=== PATIENT | female | born 1970 | race Caucasian/White ===

== ENCOUNTER → 2023-10-01 09:17 | Outpatient (REF) | payer BC, SELFPAY | LOC: RAD 09:17 | PROVIDERS: ATTENDING PHYSICIAN Physician Assistant | DX: Z87.81 Personal history of (healed) traumatic fracture (principal); Z13.820 Encounter for screening for osteoporosis | CPT/HCPCS: 77080 ==

== ENCOUNTER → 2023-10-02 07:22 | Outpatient (REF) | payer BC, SELFPAY | LOC: RAD 07:22 | PROVIDERS: ATTENDING PHYSICIAN Physician Assistant | DX: R10.11 Right upper quadrant pain (principal) | CPT/HCPCS: 76700 ==

== ENCOUNTER → 2023-10-15 17:11 | Outpatient (REF) | payer BC, SELFPAY | LOC: WDC 17:11 | PROVIDERS: ATTENDING PHYSICIAN Physician Assistant | DX: Z12.31 Encounter for screening mammogram for malignant neoplasm of breast (principal) | CPT/HCPCS: 77063; 77067 ==

== ENCOUNTER 2024-03-13 17:56 | Emergency (ER) | payer BC, SELFPAY ==
[2024-03-13] VITALS (9 sets, daily range): BP systolic 94–133; BP diastolic 67–90; PULSE 64–69; BMI 37.7
[2024-03-13 18:25] LABS: % Basophils 1.1 % (0-2); % Eosinophils 3.7 % (0-6); % Immature Granulocytes 0.2 % (0-0.5); % Lymphocytes 34.4 % (20.5-51.1); % Monocytes 7.6 % (1.7-9.3); Absolute Basophils 0.1 10^3/uL (0-0.2); Absolute Eosinophils 0.2 10^3/uL (0-0.7); Absolute Lymphocytes 1.9 10^3/uL (1.2-3.4); Absolute Monocytes 0.4 10^3/uL (0.1-0.6); Absolute Neutrophils 2.9 10^3/uL (1.4-6.5); Hematocrit 35.2 % (37.0-47.0); Hemoglobin 11.6 g/dL (12.0-16.0); Mean Corpuscular Hgb 30.6 pg (27.0-31.0); Mean Corpuscular Volume 92.9 fL (81.0-99.0); Mean Platelet Volume 8.7 fL (7.4-10.4); Nucleated Red Blood Cells % 0 %; Platelet Count 332 10^3/uL (130-400); Red Blood Cell Count 3.79 10^6/uL (4.20-5.40); Red Cell Dist. Width 12.9 % (11.5-14.5); White Blood Cell Count 5.4 10^3/uL (4.8-10.8)
[2024-03-13 18:41] LABS: ALT (SGPT) 19 U/L (0-35); AST (SGOT) 27 U/L (14-36); Albumin 4.4 g/dl (3.5-5.0); Alkaline Phosphatase 66 U/L (38-126); Blood Urea Nitrogen 15 mg/dl (7-17); Calcium 9.2 mg/dl (8.4-10.2); Carbon Dioxide 25 mmol/L (22-30); Chloride 103 mmol/L (98-107); Glucose 153 mg/dl (70-99); Potassium 4.1 mmol/L (3.5-5.1); Sodium 135 mmol/L (135-145); Total Bilirubin 1.4 mg/dl (0.2-1.3); Total Protein 6.9 g/dl (6.3-8.2); eGFR > 60.00
[2024-03-13] MEDS: NSS 1000 IV (20:57)
--- NOTE | 2024-03-13 21:00 | ED.GENMED ---
History of Present Illness
General
Chief Complaint: Fainting/Passed Out
Source: patient
Exam Limitations: none
Time Seen by Provider: 03/13/24 20:23
Nursing documentation reviewed up to this point in time: agreed with
History of Present Illness
History of Present Illness:
54-year-old female limited past medical history presents with a syncopal event while at the [employer] with her dog who is getting his or her nails clipped as she felt hot dizzy then passed out vomiting, no head strike no chest pain or shortness
of breath has had similar in the past told with orthostasis, had a cardiac workup and cleared, no fevers, no abdominal pain no diarrhea no hematuria no bloody stools no vaginal bleeding, feeling better now states she woke up this morning felt a bit
off, but was able to go about her day take her dog to the broach grinder,
Past History
Past History
ED Past Medical History: Hypercholesterolemia, Psychiatric and Other (Dysthymia, migraines)
ED Past Surgical History:
Social History
Tobacco: Non-smoker
Alcohol: None
Drug: None
Personal:
Living: with family
Employment: Employed
Review of Systems
Review of Systems
All Other Systems: Not applicable
Constitutional: Reports fatigue
EENT: Reports no symptoms
Respiratory: Reports no symptoms
Cardiac: Reports syncope
ABD/GI: Reports nausea and vomiting; Denies abdominal pain or diarrhea
: Reports no symptoms
Musculoskeletal: Reports no symptoms
Skin: Reports no symptoms
Neurological: Reports dizzy
Endocrine: Reports no symptoms
Hematologic/Lymphatic: Reports no symptoms
Phy Exam
Physical Exam
Physical Exam:
Physical Exam
General: no apparent distress, not acutely ill
Neck: No tongue bite no posterior neck
Heart: s1/s2 regular rate and rhythm, no murmur. equal radial pulses.
Lungs: no acute respiratory distress. clear bilaterally
Abdomen: Nontender
Neuro: alert and oriented. no focal neurological deficits
Skin: no rash
Psychiatric: well kept. interactive and cooperative
Extremities: no edema.
Course
Orders/Labs/Results
Orders:
Orders
03/13/24 18:00
EKG [Electrocardiogram (*1)] Urgent
Reason for Study: Syncope
EKG- Treatment ONCE
03/13/24 18:17
Complete Blood Count/With Diff Urgent
Comprehensive Metabolic Panel Urgent
03/13/24 20:55
0.9% Sodium Chloride 1000 ml [Nss] 1,000 ml IV BOLUS
03/13/24 20:56
Orthostatic VS- Treatment ONCE
Abnormal Lab Results
03/13/24
18:17
RBC 3.79 L 10^6/uL
(4.20-5.40)
Hgb 11.6 L g/dL
(12.0-16.0)
Hct 35.2 L %
(37.0-47.0)
Glucose 153 H mg/dl
(70-99)
Total Bilirubin 1.4 H mg/dl
(0.2-1.3)
03/13/24 18:17
03/13/24 18:17
Vital Signs
Initial and Last Documented VS:
Initial Vital Signs
Temp Pulse Resp BP Pulse Ox
98.3 F 73 15 94/67 97
03/13/24 18:01 03/13/24 18:01 03/13/24 18:01 03/13/24 18:01 03/13/24 18:01
Last Documented Vital Signs
Temp Pulse Resp BP Pulse Ox
98.3 F 68 16 122/78 97
03/13/24 18:01 03/13/24 18:06 03/13/24 18:06 03/13/24 20:37 01/02/25 20:39
MDM/Problems Addressed
Differential Diagnosis Includes:
Vasovagal dehydration electrolyte abnormality arrhythmia
MDM/Problems Addressed:
Syncope
Chronic conditions affecting care:
Syncope vasovagal
Acute Exacerbation and/or Progression of Chronic Illness:
Syncope vasovagal
*Pulse Oximetry
Patient hypoxic: no
*EKG
Interpreted by ED Provider?: Yes
Interpretation: normal
Comparison EKG: no comparison EKG present
Heart Rate: 78
Rate: normal
Rhythm: sinus
Ischemia: no ischemia
*Swing Tender Interpretation
Rate: normal
Interpretation: normal
Heart Rate: 78
Rhythm: sinus
*Critical Care Note
Total Time (30-74mins, 75-104mins- exclusive of procedures): Not Applicable
Update Note
Update Note:
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
Update patient feeling better
ED Attending Note
-
Portions of this chart may have been created with voice recognition software.� Occasional wrong word or��sound alike� substitutions may have occurred due to the inherent limitations of voice recognition software.
Discharge Plan
Departure
Patient Disposition: Home (Routine Discharge)
Date of Disposition: 03/13/24
Time of Disposition: 22:19
Patient with high blood pressure during this ER visit?: No
Condition: Good
Covid-19: Not Applicable
Discharge Problem:
Syncope and collapse
Instructions: Syncope (Fainting) (DC)
Prescriptions:
No Action
doxycycline hyclate 100 MG capsule
100 mg PO DAILY
sumatriptan succinate 50 MG tablet
50 - 100 mg PO PRN PRN (Reason: migraines)
bupropion HCl [Wellbutrin] 100 MG tablet
100 mg PO DAILY
Patient Comments:
pt seems unsure of dose
alprazolam 0.5 MG tablet
0.25 mg PO Q6HPRN PRN (Reason: anxiety)
fluoxetine 20 MG capsule
60 mg PO DAILY
hydrocodone-acetaminophen [Vicodin] 1 EACH tablet
1 ea PO Q6HPRN PRN (Reason: headache) Qty: 5 0RF
Referrals:
Kelsey Erickson PA-C [Family Provider] - Next open appointment
Activity Restrictions/Additional Instructions:
Rest, plenty fluids, when you stand to stand up slowly,
Return to the ER for worsening symptoms or any other concerns
Interventions
Interventions:
*Risk Screen - Suicide Last Done: 03/13/24 18:01
*General Assessment Last Done: 03/13/24 20:39
*Neglect/Abuse Screening Last Done: 03/13/24 18:01
ED- Fall Risk Assessment Last Done: 03/13/24 20:39
*ED COVID-19 Vaccine History Last Done: 03/13/24 20:39
ED- Cardiac Assessment Last Done: 03/13/24 20:39
ED- Neurological Assessment Last Done: 03/13/24 20:39
Discharge Date and Time
Print Language: SERBIAN
== END 2024-03-13 22:53 | disposition home or self-care (01) ==
LOC: EMR 17:56
PROVIDERS: Emergency Medicine; EMERGENCY PHYSICIAN Emergency Medicine; FAMILY PHYSICIAN Physician Assistant Medical
DX: R55 Syncope and collapse (principal); R11.2 Nausea with vomiting, unspecified; E78.00 Pure hypercholesterolemia, unspecified; G43.909 Migraine, unspecified, not intractable, without status migrainosus; F32.A Depression, unspecified; Z88.1 Allergy status to other antibiotic agents
CPT/HCPCS: 99284; 96360; 80053; 85025; 93005

== ENCOUNTER → 2024-11-22 13:35 | Outpatient (REF) | payer BC, SELFPAY | LOC: WDC 13:35 | PROVIDERS: ATTENDING PHYSICIAN Physician Assistant Medical | DX: Z12.31 Encounter for screening mammogram for malignant neoplasm of breast (principal) | CPT/HCPCS: 77063; 77067 ==